=== PATIENT | female | born 1950 | race Caucasian/White ===

== ENCOUNTER → 2023-12-07 10:46 | Outpatient (REF) | payer MEDICARE, OTHER, SELFPAY ==
[2023-12-07 11:05] LABS: % Basophils 0.8 % (0-2); % Eosinophils 2.8 % (0-6); % Immature Granulocytes 0.2 % (0-0.5); % Lymphocytes 32.5 % (20.5-51.1); % Monocytes 8.6 % (1.7-9.3); % Neutrophils 55.1 % (42.2-75.2); Absolute Eosinophils 0.1 10^3/uL (0-0.7); Absolute Lymphocytes 1.6 10^3/uL (1.2-3.4); Absolute Monocytes 0.4 10^3/uL (0.1-0.6); Absolute Neutrophils 2.8 10^3/uL (1.4-6.5); Hematocrit 31.4 % (37.0-47.0); Hemoglobin 10.5 g/dL (12.0-16.0); Mean Corp Hgb Conc. 33.4 g/dL (33.0-37.0); Mean Corpuscular Hgb 28.5 pg (27.0-31.0); Mean Corpuscular Volume 85.1 fL (81.0-99.0); Mean Platelet Volume 9.8 fL (7.4-10.4); Nucleated Red Blood Cells % 0 %; Platelet Count 259 10^3/uL (130-400); Red Blood Cell Count 3.69 10^6/uL (4.20-5.40); Red Cell Dist. Width 15.1 % (11.5-14.5)
[2023-12-07 11:16] LABS: ALT (SGPT) 17 U/L (0-35); AST (SGOT) 28 U/L (14-36); Albumin 3.9 g/dl (3.5-5.0); Alkaline Phosphatase 103 U/L (38-126); Blood Urea Nitrogen 30 mg/dl (7-17); Calcium 8.6 mg/dl (8.4-10.2); Carbon Dioxide 29 mmol/L (22-30); Chloride 101 mmol/L (98-107); Glucose 146 mg/dl (70-99); Potassium 4.1 mmol/L (3.5-5.1); Sodium 137 mmol/L (135-145); Total Bilirubin 0.5 mg/dl (0.2-1.3); Total Protein 6.6 g/dl (6.3-8.2); eGFR 36.12
[2023-12-07 12:29] LABS: Glycohemoglobin (HgbA1c) 7.4 % (4.0-5.6)
== END ==
LOC: OLABSOL 10:46
PROVIDERS: ATTENDING PHYSICIAN Physician Assistant
DX: E11.9 Type 2 diabetes mellitus without complications (principal)
CPT/HCPCS: 36415; 80053; 83036; 85025

== ENCOUNTER → 2024-01-16 15:30 | Outpatient (REF) | payer MEDICARE, OTHER, SELFPAY ==
[2024-01-16 16:40] LABS: % Basophils 0.8 % (0-2); % Eosinophils 2.2 % (0-6); % Immature Granulocytes 0.4 % (0-0.5); % Lymphocytes 27.1 % (20.5-51.1); % Monocytes 7.8 % (1.7-9.3); % Neutrophils 61.7 % (42.2-75.2); Absolute Eosinophils 0.1 10^3/uL (0-0.7); Absolute Lymphocytes 1.4 10^3/uL (1.2-3.4); Absolute Monocytes 0.4 10^3/uL (0.1-0.6); Absolute Neutrophils 3.1 10^3/uL (1.4-6.5); Hematocrit 36.4 % (37.0-47.0); Hemoglobin 11.7 g/dL (12.0-16.0); Mean Corp Hgb Conc. 32.1 g/dL (33.0-37.0); Mean Corpuscular Hgb 28.5 pg (27.0-31.0); Mean Corpuscular Volume 88.8 fL (81.0-99.0); Mean Platelet Volume 10.5 fL (7.4-10.4); Nucleated Red Blood Cells % 0 %; Platelet Count 226 10^3/uL (130-400); Red Cell Dist. Width 15.9 % (11.5-14.5)
[2024-01-16 16:46] LABS: ALT (SGPT) 15 U/L (0-35); AST (SGOT) 25 U/L (14-36); Albumin 4.2 g/dl (3.5-5.0); Alkaline Phosphatase 95 U/L (38-126); Blood Urea Nitrogen 36 mg/dl (7-17); Calcium 9.2 mg/dl (8.4-10.2); Carbon Dioxide 30 mmol/L (22-30); Chloride 99 mmol/L (98-107); Glucose 96 mg/dl (70-99); Potassium 4.4 mmol/L (3.5-5.1); Sodium 140 mmol/L (135-145); Total Bilirubin 0.4 mg/dl (0.2-1.3); Total Protein 7.1 g/dl (6.3-8.2); eGFR 39.23
[2024-01-17 08:54] LABS: Glycohemoglobin (HgbA1c) 6.9 % (4.0-5.6)
== END ==
LOC: OLABSOL 15:30
PROVIDERS: ATTENDING PHYSICIAN Physician Assistant
DX: E11.9 Type 2 diabetes mellitus without complications (principal)
CPT/HCPCS: 80053; 83036; 85025

== ENCOUNTER → 2024-04-23 11:16 | Outpatient (REF) | payer MEDICARE, OTHER, SELFPAY ==
[2024-04-23 11:49] LABS: % Basophils 0.5 % (0-2); % Eosinophils 0.2 % (0-6); % Immature Granulocytes 0.2 % (0-0.5); % Lymphocytes 20.6 % (20.5-51.1); % Monocytes 5.8 % (1.7-9.3); % Neutrophils 72.7 % (42.2-75.2); Absolute Lymphocytes 1.1 10^3/uL (1.2-3.4); Absolute Monocytes 0.3 10^3/uL (0.1-0.6); Hematocrit 37.1 % (37.0-47.0); Hemoglobin 11.6 g/dL (12.0-16.0); Mean Corp Hgb Conc. 31.3 g/dL (33.0-37.0); Mean Corpuscular Hgb 28.3 pg (27.0-31.0); Mean Corpuscular Volume 90.5 fL (81.0-99.0); Mean Platelet Volume 10.8 fL (7.4-10.4); Nucleated Red Blood Cells % 0 %; Platelet Count 224 10^3/uL (130-400); Red Cell Dist. Width 14.8 % (11.5-14.5); White Blood Cell Count 5.5 10^3/uL (4.8-10.8)
[2024-04-23 12:14] LABS: ALT (SGPT) 16 U/L (0-35); AST (SGOT) 33 U/L (14-36); Albumin 4.3 g/dl (3.5-5.0); Alkaline Phosphatase 87 U/L (38-126); Blood Urea Nitrogen 31 mg/dl (7-17); Calcium 9.1 mg/dl (8.4-10.2); Carbon Dioxide 25 mmol/L (22-30); Chloride 103 mmol/L (98-107); Glucose 54 mg/dl (70-99); Potassium 4.4 mmol/L (3.5-5.1); Sodium 138 mmol/L (135-145); Total Bilirubin 0.4 mg/dl (0.2-1.3); Total Protein 7.2 g/dl (6.3-8.2); eGFR 42.62
[2024-04-23 13:47] LABS: Glycohemoglobin (HgbA1c) 6.2 % (4.0-5.6)
== END ==
LOC: OLABSOL 11:16
PROVIDERS: ATTENDING PHYSICIAN Physician Assistant
DX: E11.65 Type 2 diabetes mellitus with hyperglycemia (principal)
CPT/HCPCS: 36415; 80053; 83036; 85025

== ENCOUNTER 2024-06-20 08:32 | Emergency (ER) | payer MEDICARE, OTHER, SELFPAY ==
[2024-06-20 08:34] VITALS: BP 118/53
[2024-06-20 08:39] LABS: Glucose - Point of Care 90 mg/dl (70-99)
--- NOTE | 2024-06-20 08:48 | ED.GENMED ---
History of Present Illness
General
Chief Complaint: Blood Sugar Problem
Source: patient
Exam Limitations: none
Time Seen by Provider: 06/20/24 08:37
History of Present Illness
History of Present Illness:
See MDM
Past History
Past History
ED Past Medical History: HTN, Hypercholesterolemia, NIDDM, Psychiatric (Depression) and Other (Hyponatremia, Dementia)
ED Past Surgical History: None
Social History
Tobacco: Former smoker
Alcohol: None
Drug: None
Personal:
Living: senior care
Phy Exam
Physical Exam
Physical Exam:
See MDM
Course
Orders/Labs/Results
Orders:
Orders
06/20/24 08:41
Electrocardiogram (*1) Urgent
Reason for Study: Vertigo / Dizzy
EKG- Treatment ONCE
06/20/24 08:47
Complete Blood Count/With Diff Urgent
Comprehensive Metabolic Panel Urgent
Abnormal Lab Results
06/20/24 06/20/24
08:47 10:59
WBC 4.4 L 10^3/uL
(4.8-10.8)
RBC 4.05 L 10^6/uL
(4.20-5.40)
Hgb 11.9 L g/dL
(12.0-16.0)
Hct 36.0 L %
(37.0-47.0)
Absolute Lymphs (auto) 0.8 L 10^3/uL
(1.2-3.4)
Lymphocytes % 18.0 L %
(20.5-51.1)
BUN 27 H mg/dl
(7-17)
Creatinine 1.5 H mg/dL
(0.6-1.0)
Glucose 152 H mg/dl
(70-99)
AST 40 H U/L
(14-36)
POC Glucose 148 H mg/dl
(70-99)
06/20/24 08:47
06/20/24 08:47
Vital Signs
Initial and Last Documented VS:
Initial Vital Signs
Temp Pulse Resp BP Pulse Ox
97.5 F 94 20 118/53 99
06/20/24 08:34 06/20/24 08:34 06/20/24 08:34 06/20/24 08:34 06/20/24 08:34
Last Documented Vital Signs
Temp Pulse Resp BP Pulse Ox
97.5 F 95 10 117/61 99
06/20/24 08:34 06/20/24 11:00 06/20/24 11:00 06/20/24 11:00 06/20/24 11:00
MDM/Problems Addressed
Differential Diagnosis Includes:
HPI and MDM Narrative:
74-year-old female presenting with near syncopal event. Patient was walking with her caregiver and she had to be helped to the ground. Patient was found to have low blood sugar. EMS provided D10. Symptoms are improving. Prior records indicate
that she is on insulin at nighttime. Patient denying any complaint other than dizziness
Physical exam
General: Well appearing and non-toxic
HEENT: protecting airway. Dry mucous
Neck: appears supple
CV: No evidence of cyanosis. Regular rate and rhythm
Resp: No accessory muscle use
Abd: Non-distended
Extremities: No deformities
Neuro: alert. No focal deficits
Psych: Normal affect
Skin: Intact
Problems Addressed including Acute and Chronic Conditions affecting care:
1. Hypoglycemia
Acuity: acute
Prognosis: stable
Details: Potentially in the setting of poor p.o. intake versus too much insulin. Patient given food in the emergency department. Will continue to monitor
2. Dizziness
Acuity: acute
Prognosis: stable
Details: Likely in the setting of hypoglycemia and mild dehydration. Patient given oral fluids
Updates
Blood sugar has remained stable. Patient eating. Discussed return precautions and discussed follow-up with PCP to go over the insulin regimen
Differential Diagnosis (but not limited to): Hyperglycemia, cardiac arrhythmia, dehydration
Testing considered: CT head but she has no focal deficits
Drug therapy (if applicable): OTC meds, please see d/c instruction regarding Rx drugs
Amount and/or Complexity of Data Reviewed
Clinical info obtained from: Patient
External data reviewed: N/A
Labs I independently reviewed (but not limited to): Blood sugar
Radiology: N/A
Pulse Ox: not hypoxic
EKG independently reviewed: Sinus rhythm, normal axis, no STEMI
Grain Farmer: N/A
Critical Care: N/A
Risk of Complication:
Social Determinants of health: Good social support
Discussed with other providers: N/A
Escalation of Care includes Admit/Obs: After being observed in the Emergency Department, pt stable for discharge.
Occasional wrong word or 'sound a like' substitutions may have occurred due to the inherent limitations of voice recognition software. Read the chart carefully and recognize, using context, where substitutions have occurred.
*Critical Care Note
Total Time (30-74mins, 75-104mins- exclusive of procedures): Not Applicable
ED Attending Note
-
Portions of this chart may have been created with voice recognition software.� Occasional wrong word or��sound alike� substitutions may have occurred due to the inherent limitations of voice recognition software.
Discharge Plan
Departure
Patient Disposition: Home (Routine Discharge)
Date of Disposition: 06/20/24
Time of Disposition: 11:19
Patient with high blood pressure during this ER visit?: No
Discharge Problem:
Hypoglycemia
Instructions: Low Blood Sugar, Adult ED
Prescriptions:
No Action
atorvastatin 40 MG tablet
40 mg PO HS
pyridoxine (vitamin B6) 50 MG tablet
50 mg PO DAILY
sertraline 100 MG tablet
100 mg PO DAILY
nortriptyline 25 MG capsule
25 mg PO HS
furosemide 20 MG tablet
60 mg PO BID
divalproex 250 MG tablet extended release 24 hr
250 mg PO Q12H
aripiprazole 5 MG tablet
5 mg PO HS
metoprolol tartrate 25 MG tablet
25 mg PO BID
insulin detemir U-100 [Levemir FlexTouch U100 Insulin] 300 UNIT/3 ML insulin pen
30 unit SC HS
multivitamin with folic acid [Tab-A-Adam] 1 TABLET tablet
1 tab PO DAILY
Micro Guard 2%
1 applic topical DAILY
Patient Comments:
07/27/2021: APPLY UNDER BOTH BREAST AND TRUNK AREA
cephalexin 500 MG capsule
500 mg PO QID Qty: 32 0RF
Rx Instructions:
for 8 more days
Referrals:
UNKNOWN - PT NOT,INTERVIEWE [Family Provider] -
Activity Restrictions/Additional Instructions:
Please return for any worsening symptoms.
You may return at any time if you have further concerns.
Please follow up with your doctor at the first available appointment, preferably this week. Please discuss your low blood sugar today. Your doctor may want to decrease your insulin dosing.
Thank you for choosing [facility].
Interventions
Interventions:
*Risk Screen - Suicide Last Done: 06/20/24 08:34
*General Assessment Last Done: 06/20/24 08:34
*Neglect/Abuse Screening Last Done: 06/20/24 08:34
ED- Neurological Assessment Last Done: 06/20/24 09:00
Discharge Date and Time
Print Language: FRENCH
[2024-06-20 09:00] VITALS: BP 111/53
[2024-06-20 09:05] LABS: % Basophils 0.7 % (0-2); % Eosinophils 1.1 % (0-6); % Immature Granulocytes 0.2 % (0-0.5); % Monocytes 6.3 % (1.7-9.3); % Neutrophils 73.7 % (42.2-75.2); Absolute Eosinophils 0.1 10^3/uL (0-0.7); Absolute Lymphocytes 0.8 10^3/uL (1.2-3.4); Absolute Monocytes 0.3 10^3/uL (0.1-0.6); Absolute Neutrophils 3.3 10^3/uL (1.4-6.5); Hemoglobin 11.9 g/dL (12.0-16.0); Mean Corp Hgb Conc. 33.1 g/dL (33.0-37.0); Mean Corpuscular Hgb 29.4 pg (27.0-31.0); Mean Corpuscular Volume 88.9 fL (81.0-99.0); Mean Platelet Volume 9.9 fL (7.4-10.4); Nucleated Red Blood Cells % 0 %; Platelet Count 210 10^3/uL (130-400); Red Blood Cell Count 4.05 10^6/uL (4.20-5.40); Red Cell Dist. Width 14.5 % (11.5-14.5); White Blood Cell Count 4.4 10^3/uL (4.8-10.8)
[2024-06-20 09:18] LABS: ALT (SGPT) 20 U/L (0-35); AST (SGOT) 40 U/L (14-36); Albumin 3.8 g/dl (3.5-5.0); Alkaline Phosphatase 94 U/L (38-126); Blood Urea Nitrogen 27 mg/dl (7-17); Carbon Dioxide 30 mmol/L (22-30); Chloride 100 mmol/L (98-107); Estimated Creatinine Clearance 34 ml/min; Glucose 152 mg/dl (70-99); Potassium 3.9 mmol/L (3.5-5.1); Sodium 138 mmol/L (135-145); Total Bilirubin 0.4 mg/dl (0.2-1.3); Total Protein 6.4 g/dl (6.3-8.2); eGFR 35.89
[2024-06-20 10:00] VITALS: BP 116/50
[2024-06-20 11:00] VITALS: BP 117/61
[2024-06-20 11:01] LABS: Glucose - Point of Care 148 mg/dl (70-99)
[2024-06-20 12:00] VITALS: BP 111/58
[2024-06-20 13:00] VITALS: BP 100/62
== END 2024-06-20 13:52 | disposition home or self-care (01) ==
LOC: EMR 08:32
PROVIDERS: EMERGENCY PHYSICIAN Student in an Organized Health Care Education/Training Program
DX: E11.649 Type 2 diabetes mellitus with hypoglycemia without coma (principal); Z87.891 Personal history of nicotine dependence
CPT/HCPCS: 99284; 80053; 82962; 85025; 93005

== ENCOUNTER → 2024-09-10 11:47 | Outpatient (REF) | payer MEDICARE, OTHER, SELFPAY ==
[2024-09-10 12:32] LABS: % Basophils 0.5 % (0-2); % Eosinophils 2.3 % (0-6); % Immature Granulocytes 0.3 % (0-0.5); % Lymphocytes 30.3 % (20.5-51.1); % Monocytes 8.9 % (1.7-9.3); % Neutrophils 57.7 % (42.2-75.2); Absolute Eosinophils 0.1 10^3/uL (0-0.7); Absolute Lymphocytes 1.2 10^3/uL (1.2-3.4); Absolute Monocytes 0.4 10^3/uL (0.1-0.6); Absolute Neutrophils 2.3 10^3/uL (1.4-6.5); Hematocrit 34.1 % (37.0-47.0); Mean Corp Hgb Conc. 32.3 g/dL (33.0-37.0); Mean Corpuscular Hgb 28.5 pg (27.0-31.0); Mean Corpuscular Volume 88.3 fL (81.0-99.0); Mean Platelet Volume 9.6 fL (7.4-10.4); Nucleated Red Blood Cells % 0 %; Platelet Count 214 10^3/uL (130-400); Red Blood Cell Count 3.86 10^6/uL (4.20-5.40); White Blood Cell Count 3.9 10^3/uL (4.8-10.8)
[2024-09-10 12:46] LABS: ALT (SGPT) 18 U/L (0-35); AST (SGOT) 26 U/L (14-36); Albumin 3.5 g/dl (3.5-5.0); Alkaline Phosphatase 96 U/L (38-126); Blood Urea Nitrogen 19 mg/dl (7-17); Carbon Dioxide 30 mmol/L (22-30); Chloride 102 mmol/L (98-107); Glucose 85 mg/dl (70-99); Potassium 4.5 mmol/L (3.5-5.1); Sodium 141 mmol/L (135-145); Total Bilirubin 0.2 mg/dl (0.2-1.3); Total Protein 5.9 g/dl (6.3-8.2); eGFR 35.89
[2024-09-10 12:58] LABS: Glycohemoglobin (HgbA1c) 5.3 % (4.0-5.6)
== END ==
LOC: OLABSOL 11:47
PROVIDERS: ATTENDING PHYSICIAN Physician Assistant
DX: E11.65 Type 2 diabetes mellitus with hyperglycemia (principal)
CPT/HCPCS: 36415; 80053; 83036; 85025

== ENCOUNTER → 2024-09-30 17:45 | Outpatient (REF) | payer MEDICARE, OTHER, SELFPAY ==
[2024-10-01 16:44] LABS: Urine Albumin Negative (Neg - Trace); Urine Bilirubin Negative (Negative); Urine Character Clear (Clear); Urine Color Yellow; Urine Glucose Negative (Negative); Urine Ketone Negative (Negative); Urine Leukocyte Trace (Negative); Urine Nitrite Negative (Negative); Urine Occult Blood Negative (Negative); Urine Urobilinogen Negative (Neg - 1+)
[2024-10-01 17:04] LABS: Urine Red Blood Cell 0-2 /HPF (0-2); Urine Squamous Cell 26-30 /LPF (Few); Urine White Cell 0-2 /HPF (0-5)
[2024-10-01 17:05] LABS: Urine Bacteria Moderate (Negative)
== END ==
LOC: OLABSOL 17:45
PROVIDERS: ATTENDING PHYSICIAN Nurse Practitioner Adult Health
DX: N39.0 Urinary tract infection, site not specified (principal)
CPT/HCPCS: 81003; 81015; 87086

== ENCOUNTER → 2024-12-24 09:32 | Outpatient (REF) | payer MEDICARE, OTHER, SELFPAY ==
[2024-12-24 10:16] LABS: % Basophils 0.7 % (0-2); % Eosinophils 3.1 % (0-6); % Immature Granulocytes 0.2 % (0-0.5); % Lymphocytes 31.9 % (20.5-51.1); % Monocytes 8.6 % (1.7-9.3); % Neutrophils 55.5 % (42.2-75.2); Absolute Eosinophils 0.1 10^3/uL (0-0.7); Absolute Lymphocytes 1.3 10^3/uL (1.2-3.4); Absolute Monocytes 0.4 10^3/uL (0.1-0.6); Absolute Neutrophils 2.3 10^3/uL (1.4-6.5); Hematocrit 34.9 % (37.0-47.0); Hemoglobin 11.4 g/dL (12.0-16.0); Mean Corp Hgb Conc. 32.7 g/dL (33.0-37.0); Mean Corpuscular Hgb 27.9 pg (27.0-31.0); Mean Corpuscular Volume 85.3 fL (81.0-99.0); Mean Platelet Volume 9.5 fL (7.4-10.4); Nucleated Red Blood Cells % 0 %; Platelet Count 209 10^3/uL (130-400); Red Blood Cell Count 4.09 10^6/uL (4.20-5.40); Red Cell Dist. Width 14.6 % (11.5-14.5); White Blood Cell Count 4.2 10^3/uL (4.8-10.8)
[2024-12-24 10:59] LABS: ALT (SGPT) 15 U/L (0-35); AST (SGOT) 20 U/L (14-36); Albumin 3.4 g/dl (3.5-5.0); Alkaline Phosphatase 94 U/L (38-126); Blood Urea Nitrogen 18 mg/dl (7-17); Calcium 8.6 mg/dl (8.4-10.2); Carbon Dioxide 30 mmol/L (22-30); Chloride 105 mmol/L (98-107); Glucose 96 mg/dl (70-99); Sodium 140 mmol/L (135-145); Total Bilirubin 0.4 mg/dl (0.2-1.3); Total Protein 5.7 g/dl (6.3-8.2); eGFR 42.62
[2024-12-24 11:04] LABS: Glycohemoglobin (HgbA1c) 5.7 % (4.0-5.6)
== END ==
LOC: OLABSOL 09:32
PROVIDERS: ATTENDING PHYSICIAN Physician Assistant
DX: E11.65 Type 2 diabetes mellitus with hyperglycemia (principal)
CPT/HCPCS: 36415; 80053; 83036; 85004; 85025

== ENCOUNTER → 2025-04-22 10:13 | Outpatient (REF) | payer MEDICARE, OTHER, SELFPAY ==
[2025-04-22 10:34] LABS: % Basophils 0.5 % (0-2); % Eosinophils 2.6 % (0-6); % Immature Granulocytes 0.2 % (0-0.5); % Lymphocytes 30.7 % (20.5-51.1); Absolute Eosinophils 0.1 10^3/uL (0-0.7); Absolute Lymphocytes 1.3 10^3/uL (1.2-3.4); Absolute Monocytes 0.3 10^3/uL (0.1-0.6); Absolute Neutrophils 2.5 10^3/uL (1.4-6.5); Hematocrit 35.6 % (37.0-47.0); Hemoglobin 11.8 g/dL (12.0-16.0); Mean Corp Hgb Conc. 33.1 g/dL (33.0-37.0); Mean Corpuscular Hgb 28.4 pg (27.0-31.0); Mean Corpuscular Volume 85.8 fL (81.0-99.0); Mean Platelet Volume 9.9 fL (7.4-10.4); Nucleated Red Blood Cells % 0 %; Platelet Count 236 10^3/uL (130-400); Red Blood Cell Count 4.15 10^6/uL (4.20-5.40); Red Cell Dist. Width 14.6 % (11.5-14.5); White Blood Cell Count 4.3 10^3/uL (4.8-10.8)
[2025-04-22 10:59] LABS: ALT (SGPT) 15 U/L (0-35); AST (SGOT) 28 U/L (14-36); Alkaline Phosphatase 86 U/L (38-126); Blood Urea Nitrogen 18 mg/dl (7-17); Calcium 9.1 mg/dl (8.4-10.2); Carbon Dioxide 26 mmol/L (22-30); Chloride 107 mmol/L (98-107); Glucose 95 mg/dl (70-99); Potassium 4.1 mmol/L (3.5-5.1); Sodium 142 mmol/L (135-145); Total Bilirubin 0.5 mg/dl (0.2-1.3); Total Protein 6.7 g/dl (6.3-8.2); eGFR 51.75
[2025-04-22 12:10] LABS: Glycohemoglobin (HgbA1c) 5.4 % (4.0-5.6)
== END ==
LOC: OLABSOL 10:13
PROVIDERS: ATTENDING PHYSICIAN Physician Assistant
DX: E11.65 Type 2 diabetes mellitus with hyperglycemia (principal)
CPT/HCPCS: 36415; 80053; 83036; 85025